=== PATIENT | male | born 1945 | race Caucasian/White ===

== ENCOUNTER 2017-04-11 10:23 | Emergency (ER) | payer MEDICARE, OTHER ==
[~2017-04-11] VITALS: Ht 177.8 cm; Wt 102.1 kg
[2017-04-11 11:04] LABS: LYMPH # 1.7 K/mm3 (0.7-4.5); LYMPH % 19.1 % (10-50)
--- NOTE | 2017-04-11 11:19 | Emergency Room Report ---
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 CORRECTED BY EMS WITH D50 EN ROUTE TO FACILITY. PT A&O X4. 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 N Clinical Suspician of Infection? N Mental Status: 1 - Regular (Normal Baseline) Sepsis Risk:Low Sepsis Risk Have you (or family members/close friends) recently traveled outside the [place]? N If Yes, where/when: Have you had exposure to infectious disease within the past month? N TB? Other? Specify: 71 years old white male was diabetic use insulin 70/30 50 UNITS IN AM. He took his insulin dose this morning and he missed his breakfast. His he was sitting on the chair when he became weak and fell to the ground and landed on his belly. She denies that he hit his head. The ambulance. On arrival was at sugar was 41. He was given an amp of D50 with excellent results. The patient is alert and oriented 3 in the ER denies head pain or neck pain. He denies chest pain shortness of breath or palpitations. Abdominal pain nausea vomiting or diarrhea. He denies bleeding profusely. He takes aspirin and Plavix. And again he denied that he hit his head and the agrees. Source patient, RN notes reviewed, family (tHE ) Exam Limitations no limitations ALLERGIES Coded Allergies: No Known Allergies (04/11/17) History Medical History General Angina: Yes [place]: Yes Hypertension? Yes Hyperlipidemia? Yes CHF? Yes COPD? Yes Asthma? No Hernia? No CVA? No Seizures? No Diabetes? Yes Insulin Dependent: Yes Insulin Pump: No Home FSBS? Yes UTI? No Stones? No GB Disease: No Hepatitis? No Cataracts? No Glaucoma? No MRSA? No TB? No Cancer? No Immunization Hx Ped.Immunizations UTD Yes DT/Tetanus 1-4 YRS Flu LAST YEAR Pneumonia 1-4 YRS Surgical Hx Previous Surgery?Y ARM SURGERY Appendectomy REMOVE POLPS UGI PACEMAKER Family History Family Hx Diabetes No CAD No Hypertension Yes Hyperlipidemia Yes Cancer No TB No Social History Smoking Hx Smoker: Former Smoker Tobacco: Yes Type Cigarettes Packs/day 1 2 - 2 Packs Alcohol Alcohol: No Review of Systems All Other Systems Reviewed and Negative Constitutional see HPI, weakness Eyes no symptoms reported ENT no symptoms reported. Respiratory no symptoms reported Cardiovascular no symptoms reported Gastrointestinal no symptoms reported Genitourinary no symptoms reported. Musculoskeletal no symptoms reported Skin no symptoms reported Psychiatric/Neurological no symptoms reported Physical Exam Vital Signs Vital Signs Date Time Temp Pulse Resp B/P Pulse O2 O2 Flow FiO2 Ox Delivery Rate 04/11 1444 74 18 114/78 96 3 04/11 1413 97.8 73 18 112/73 96 3 04/11 1236 73 18 112/73 96 3 04/11 1155 72 18 112/73 95 3 04/11 1109 69 18 147/62 96 3 04/11 1024 97.8 101 18 154/75 97 3 There was bedbugs on the patient he claims that he these have fleas from his dog. (Yuli HERNDON,[facility]) - WBC >12,000 or <4,000 or 10% bands? 2 or more SIRS Criteria Met? B/P:147/62 MAP:101 Creatinine >2.0? UA output<0.5ml/kg/hr for 2 hrs? Platelet count >100,000? Lactate >2.0mmol/1? INR >1.2 or PTT > than 60 sec? Evidence of Organ Dysfunction? Provider documented clinical suspician of infection? N Sepsis Criteria Count: 1 Sepsis Risk: Low Sepsis Risk General Appearance normal appearance, WD/WN Eye Exam - bilateral eye normal exam, bilateral eye PERRL, bilateral eye EOMI Ear, Nose, Throat hearing grossly normal, normal ENT inspection Neck normal inspection, non-tender, supple, full range of motion Respiratory Status Yes: trachea midline, chest symmetrical, non tender chest. No: respiratory distress. Lung Sounds bilateral: normal breath sounds, lungs clear. 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 No Results/Orders Laboratory Tests 04/11/17 1413: Troponin I < 0.02 04/11/17 1354: POC Glucose 141 H 04/11/17 1049: Sodium 140, Potassium 4.0, Chloride 102, Carbon Dioxide 32, BUN 11, Creatinine 1.0, Estimated Creat Clear 98, Estimated GFR (MDRD) 74, Glucose 69 L, Calcium 8.2 L, Total Bilirubin 0.7, AST 15, ALT 20, Alkaline Phosphatase 104, Creatine Kinase 28 L, CK-MB (CK-2) Rel Index 5.7 H, CK and CKMB Interp 1.6, Troponin I < 0.02, B-Natriuretic Peptide 115 H, Total Protein 6.8, Albumin 3.5, Globulin 3.3 H, Albumin/Globulin Ratio 1.1, WBC 9.1, RBC 4.66, Hgb 15.0, Hct 44.9, MCV 96.5, RDW 13.8, Plt Count 184, MPV 7.3 L, Gran % 70.6, Gran # 6.4, Lymphocytes % 19.1, Monocytes % 7.8, Eosinophils % 2.2, Basophils % 0.3, Lymphocytes # 1.7, Monocytes # 0.7, Eosinophils # 0.2, Basophils # 0.0, PUBS MCHC 33.4, MCH 32.3 H Orders Procedure Date/time Status FINGERSTICK BLOOD SUGAR 04/11 1354 Complete TROPONIN I 04/11 1227 Complete OP COURTSEY MEAL 04/11 1059 Active CBC WITH AUTO DIFF 04/11 1031 Complete CARDIAC ENZYMES 04/11 1031 Complete CHEM 12 PROFILE 04/11 1031 Complete BRAIN NATRIURETIC PEPTIDE 04/11 1031 Complete Departure Departure Time of Disposition 1451 Disposition DC Home or Self Care(routine) Clinical Impression Primary Impression: Hypoglycemia Secondary Impressions: Diabetes 1.5, managed as type 1, Non-compliant behavior Condition STABLE Additional Instructions THE PATIETN MAINTAINED HIS BLOOD SUGAR AT 101THEN HE ATE HIS BREAKFAST. He remianed alert and oreinted x 3 with no events. Hi blood sugar was 60s . I repeated his blood suagr and troponin. his blood sugar was 141 prior to discharge his second troponin was negative. I had an extensive discussion with Mr. Calhoun and his . He is aware that he needs to eat if he takes his insulin. He will see his primary care physician at the [place] for insulin adjustment. Head injury instructions and to return if needed. Discharge Counseling Counseled pt/family regarding diagnosis, test results, medications/RX, home care, follow up needs ED Critical Care Critical Care No If Critical Care minutes are documented, the time involved in the performance of seperately reportable procedures was not counted toward critical care time documented. I directly delivered medical care to this critically ill and/or injured patient. Timely evaluation and treatment was necessary to address the significant organ system(s) dysfunction present in this patient. at [id number]
[2017-04-11 11:26] LABS: BUN 11 mg/dL (7-18)
[2017-04-11 11:42] LABS: GFR (ESTIMATED) 74 ML/MIN (>60)
[2017-04-11 14:57] VITALS: BP 110/75
== END 2017-04-11 14:59 | disposition home or self-care (01) ==
LOC: ER 10:23
PROVIDERS: Emergency Medicine
DX: E10.649 Type 1 diabetes mellitus with hypoglycemia without coma (principal); Z79.4 Long term (current) use of insulin; I50.9 Heart failure, unspecified; J44.9 Chronic obstructive pulmonary disease, unspecified; Z87.891 Personal history of nicotine dependence